=== PATIENT | male | born 1980 | race Caucasian/White ===

== ENCOUNTER 2018-10-31 15:46 | Inpatient (IN) | payer MEDICAID ==
[2018-10-31] MEDS: OXYCODONE/ACETAMINOPHEN (5/325) TAB PO (17:26)
[2018-10-31] MEDS: KETOROLAC 15 MG INJ IV (17:26)
[2018-10-31] MEDS: CEFTRIAXONE 1 GM/50 ML (PMX) 50 ML IVPB (17:26)
[2018-10-31] MEDS: SOD CHLORIDE 0.9% 1,000 ML IV (17:26)
[2018-10-31 17:38] LABS: ADD MAN DIFF? NO; BASOPHIL # 0.1 10^3/ul (0.0-0.1); BASOPHILS % 0.3 % (0.0-2.0); EOSINOPHILS # 0.1 10^3/ul (0.0-0.5); EOSINOPHILS % 0.8 % (0.0-7.0); HEMATOCRIT 37.6 % (42.0-52.0); HEMOGLOBIN 11.7 g/dl (14.0-18.0); LYMPHOCYTES # 1.8 10^3/ul (0.8-2.9); LYMPHOCYTES % 10.2 % (15.0-51.0); MEAN CORPUSCULAR HEMOGLOBIN 27.1 pg (29.0-33.0); MEAN CORPUSCULAR HGB CONC 31.1 g/dl (32.0-37.0); MEAN CORPUSCULAR VOLUME 87.2 fl (82.0-101.0); MEAN PLATELET VOLUME 9.3 fl (7.4-10.4); MONOCYTE # 1.2 10^3/ul (0.3-0.9); MONOCYTES % 6.8 % (0.0-11.0); NEUTROPHIL # 14.1 10^3/ul (1.6-7.5); NEUTROPHILS % 81.5 % (39.0-77.0); PLATELET COUNT 495 10^3/UL (140-415); RED BLOOD COUNT 4.31 10^6/ul (4.70-6.10); RED CELL DISTRIBUTION WIDTH 13.8 % (11.5-14.5)
[2018-10-31 17:38] LABS: WHITE BLOOD COUNT 17.3 10^3/ul (4.8-10.8)
[2018-10-31 18:00] LABS: ADD UMIC YES; UR ASCORBIC ACID 40 mg/dL (NEGATIVE); UR BACTERIA MANY /HPF (NONE SEEN); UR BILIRUBIN (Dip) NEGATIVE (NEGATIVE); UR BLOOD (Dip) 2+ mg/dL (NEGATIVE); UR CLARITY CLOUDY (CLEAR); UR COLOR AMBER (YELLOW); UR GLUCOSE (Dip) NEGATIVE (NEGATIVE); UR KETONES (Dip) TRACE mg/dL (NEGATIVE); UR LEUKOCYTE ESTERASE (Dip) NEGATIVE Leu/ul (NEGATIVE); UR NITRITE (Dip) NEGATIVE (NEGATIVE); UR RBC 63 /HPF (0-5); UR SPECIFIC GRAVITY (Dip) 1.015 (1.003-1.030); UR SQUAMOUS EPITHELIAL CELL FEW /HPF (FEW); UR TOTAL PROTEIN (Dip) 2+ mg/dl (NEGATIVE); UR UROBILINOGEN (Dip) 1+ mg/dL (NEGATIVE); UR WBC > 182 /HPF (0-5)
[2018-10-31 18:18] LABS: ALBUMIN 4.2 g/dl (3.3-4.9); ALBUMIN/GLOBULIN RATIO 0.91; ALKALINE PHOSPHATASE 134 IU/L (42-121); ANION GAP 12 (5-13); ASPARTATE AMINO TRANSFERASE 15 IU/L (15-46); BILIRUBIN,INDIRECT 0.3 mg/dl (0-1.1); BILIRUBIN,TOTAL 0.3 mg/dl (0.2-1.3); BLOOD UREA NITROGEN 12 mg/dl (7-20); CALCIUM 9.9 mg/dl (8.4-10.2); CARBON DIOXIDE 27 mmol/L (21-31); CHLORIDE 100 mmol/L (97-110); CREATININE 0.57 mg/dl (0.61-1.24); Estimated GFR > 60 mL/min (>60); GLUCOSE 101 mg/dl (70-220); LIPASE 12 U/L (23-300); POTASSIUM 3.8 mmol/L (3.5-5.1); SODIUM 139 mmol/L (135-144); TOTAL PROTEIN 8.8 g/dl (6.1-8.1)
[2018-10-31 18:20] LABS: ALANINE AMINOTRANSFERASE < 6 IU/L (13-69)
[2018-10-31] MEDS ORDERED: NACL 0.9% 3 ML SYG IV (18:30)
[2018-10-31] MEDS ORDERED: ONDANSETRON 4 MG INJ IV (18:30)
[2018-10-31] MEDS ORDERED: OXYCODONE/ACETAMINOPHEN (5/325) TAB PO ×2 (18:30)
[2018-10-31] MEDS ORDERED: ACETAMINOPHEN 325 MG TAB PO (18:30)
[2018-10-31] MEDS: VANCOMYCIN IV PER PHARMACY XX (18:35)
[2018-10-31] MEDS: PIPER-TAZO 3.375 GM IV (PMX) 100 ML IVPB (18:39)
[2018-10-31] MEDS ORDERED: traMADol 50 MG TAB PO (19:00)
[2018-10-31] MEDS: SOD CHLORIDE 0.9% 500 ML IV (19:24)
[2018-10-31] MEDS: morphine 2 MG INJ IV (19:26)
[2018-10-31] MEDS: VANCOMYCIN HCL 1.25 GM in SOD CHLORIDE 0.9% 250 ML IVPB (21:14)
[2018-10-31] MEDS: oxyCODONE 15 MG TAB PO (21:15)
[2018-10-31] MEDS ORDERED: COLLAGENASE 5 GM (UD JAR) TOP (23:18)
[2018-10-31] MEDS ORDERED: PENDING SANTYL ORDER FOR WOUND CARE XX (23:30)
[2018-11-01] MEDS: SOD CHLORIDE 0.9% 1,000 ML IV ×4 (00:12→21:04)
[2018-11-01] MEDS: HEPARIN 5,000 UNIT/1 ML VIAL SC ×3 (00:15→21:00)
[2018-11-01] MEDS: morphine 2 MG INJ IV ×4 (00:20→19:03)
[2018-11-01] MEDS: oxyCODONE 15 MG TAB PO ×4 (03:21→22:55)
[2018-11-01] MEDS: PIPER-TAZO 3.375 GM IV (PMX) 100 ML IVPB ×3 (05:32→21:04)
[2018-11-01 06:04] LABS: ADD MAN DIFF? NO
[2018-11-01 06:08] LABS: BASOPHILS % 0.4 % (0.0-2.0); EOSINOPHILS # 0.3 10^3/ul (0.0-0.5); EOSINOPHILS % 3.4 % (0.0-7.0); HEMOGLOBIN 9.1 g/dl (14.0-18.0); LYMPHOCYTES # 2.3 10^3/ul (0.8-2.9); LYMPHOCYTES % 24.8 % (15.0-51.0); MEAN CORPUSCULAR HEMOGLOBIN 27.3 pg (29.0-33.0); MEAN CORPUSCULAR HGB CONC 31.4 g/dl (32.0-37.0); MEAN CORPUSCULAR VOLUME 87.1 fl (82.0-101.0); MEAN PLATELET VOLUME 9.8 fl (7.4-10.4); MONOCYTES % 10.8 % (0.0-11.0); NEUTROPHIL # 5.6 10^3/ul (1.6-7.5); NEUTROPHILS % 60.3 % (39.0-77.0); PLATELET COUNT 411 10^3/UL (140-415); RED BLOOD COUNT 3.33 10^6/ul (4.70-6.10); RED CELL DISTRIBUTION WIDTH 13.6 % (11.5-14.5)
[2018-11-01 06:08] LABS: WHITE BLOOD COUNT 9.3 10^3/ul (4.8-10.8)
[2018-11-01 06:35] LABS: ALBUMIN 3.3 g/dl (3.3-4.9); ALBUMIN/GLOBULIN RATIO 0.91; ALKALINE PHOSPHATASE 87 IU/L (42-121); ANION GAP 8 (5-13); ASPARTATE AMINO TRANSFERASE 14 IU/L (15-46); BILIRUBIN,INDIRECT 0.2 mg/dl (0-1.1); BILIRUBIN,TOTAL 0.2 mg/dl (0.2-1.3); BLOOD UREA NITROGEN 12 mg/dl (7-20); CALCIUM 8.6 mg/dl (8.4-10.2); CARBON DIOXIDE 27 mmol/L (21-31); CHLORIDE 104 mmol/L (97-110); CREATININE 0.47 mg/dl (0.61-1.24); Estimated GFR > 60 mL/min (>60); GLUCOSE 113 mg/dl (70-220); MAGNESIUM 1.9 mg/dl (1.7-2.5); POTASSIUM 3.4 mmol/L (3.5-5.1); SODIUM 139 mmol/L (135-144); TOTAL PROTEIN 6.9 g/dl (6.1-8.1)
[2018-11-01 06:36] LABS: ALANINE AMINOTRANSFERASE < 6 IU/L (13-69)
[2018-11-01] MEDS: VANCOMYCIN 1 GM in 250 ML IVPB ×3 (06:56→21:55)
[2018-11-01] MEDS: POTASSIUM CHLORIDE 20 MEQ POWDER FOR ORAL SOLN PO ×2 (13:00→13:13)
[2018-11-01] MEDS: POTASSIUM CHLORIDE (SR) 20 MEQ TAB PO (14:46)
[2018-11-01] MEDS ORDERED: COLLAGENASE 5 GM (UD JAR) TOP (20:12)
[2018-11-01 20:47] LABS: VANCOMYCIN,TROUGH 13.9 ug/ml (10.0-20.0)
[2018-11-02] MEDS: morphine 2 MG INJ IV ×4 (01:57→19:47)
[2018-11-02] MEDS: PIPER-TAZO 3.375 GM IV (PMX) 100 ML IVPB ×3 (05:57→22:18)
[2018-11-02] MEDS: oxyCODONE 15 MG TAB PO ×3 (05:58→23:36)
[2018-11-02] MEDS: VANCOMYCIN 1 GM in 250 ML IVPB ×3 (07:01→20:15)
[2018-11-02] MEDS: HEPARIN 5,000 UNIT/1 ML VIAL SC (09:13)
[2018-11-02 10:33] LABS: ADD MAN DIFF? NO
[2018-11-02 10:36] LABS: BASOPHILS % 0.3 % (0.0-2.0); EOSINOPHILS # 0.2 10^3/ul (0.0-0.5); EOSINOPHILS % 2.9 % (0.0-7.0); HEMATOCRIT 28.3 % (42.0-52.0); HEMOGLOBIN 8.5 g/dl (14.0-18.0); LYMPHOCYTES # 1.1 10^3/ul (0.8-2.9); LYMPHOCYTES % 16.3 % (15.0-51.0); MEAN CORPUSCULAR HEMOGLOBIN 26.5 pg (29.0-33.0); MEAN CORPUSCULAR VOLUME 88.2 fl (82.0-101.0); MEAN PLATELET VOLUME 9.5 fl (7.4-10.4); MONOCYTE # 0.5 10^3/ul (0.3-0.9); MONOCYTES % 6.8 % (0.0-11.0); NEUTROPHIL # 5.2 10^3/ul (1.6-7.5); NEUTROPHILS % 73.4 % (39.0-77.0); PLATELET COUNT 368 10^3/UL (140-415); RED BLOOD COUNT 3.21 10^6/ul (4.70-6.10); RED CELL DISTRIBUTION WIDTH 13.9 % (11.5-14.5)
[2018-11-02 11:00] LABS: ANION GAP 4 (5-13); BLOOD UREA NITROGEN 6 mg/dl (7-20); CALCIUM 8.6 mg/dl (8.4-10.2); CARBON DIOXIDE 26 mmol/L (21-31); CHLORIDE 111 mmol/L (97-110); CREATININE 0.53 mg/dl (0.61-1.24); Estimated GFR > 60 mL/min (>60); GLUCOSE 139 mg/dl (70-220); MAGNESIUM 1.9 mg/dl (1.7-2.5); PHOSPHORUS 2.9 mg/dl (2.5-4.9); POTASSIUM 3.9 mmol/L (3.5-5.1); SODIUM 141 mmol/L (135-144)
[2018-11-03] MEDS: morphine 2 MG INJ IV ×4 (02:34→23:04)
[2018-11-03] MEDS: PIPER-TAZO 3.375 GM IV (PMX) 100 ML IVPB ×3 (05:17→23:05)
[2018-11-03] MEDS: VANCOMYCIN 1 GM in 250 ML IVPB ×3 (05:49→20:57)
[2018-11-03] MEDS: oxyCODONE 15 MG TAB PO ×3 (05:51→21:09)
[2018-11-03 08:15] LABS: ADD MAN DIFF? NO
[2018-11-03 08:18] LABS: BASOPHILS % 0.6 % (0.0-2.0); EOSINOPHILS # 0.2 10^3/ul (0.0-0.5); EOSINOPHILS % 4.5 % (0.0-7.0); HEMATOCRIT 28.5 % (42.0-52.0); HEMOGLOBIN 8.7 g/dl (14.0-18.0); LYMPHOCYTES # 1.6 10^3/ul (0.8-2.9); LYMPHOCYTES % 30.7 % (15.0-51.0); MEAN CORPUSCULAR HEMOGLOBIN 27.3 pg (29.0-33.0); MEAN CORPUSCULAR HGB CONC 30.5 g/dl (32.0-37.0); MEAN CORPUSCULAR VOLUME 89.3 fl (82.0-101.0); MEAN PLATELET VOLUME 9.5 fl (7.4-10.4); MONOCYTE # 0.4 10^3/ul (0.3-0.9); MONOCYTES % 7.8 % (0.0-11.0); NEUTROPHIL # 2.9 10^3/ul (1.6-7.5); NEUTROPHILS % 56.2 % (39.0-77.0); PLATELET COUNT 349 10^3/UL (140-415); RED BLOOD COUNT 3.19 10^6/ul (4.70-6.10); RED CELL DISTRIBUTION WIDTH 14.1 % (11.5-14.5)
[2018-11-03 08:18] LABS: WHITE BLOOD COUNT 5.1 10^3/ul (4.8-10.8)
[2018-11-03] MEDS: ZINC SULFATE 220 MG CAP PO (08:30)
[2018-11-03] MEDS: ASCORBIC ACID 500 MG TAB PO ×2 (08:30→20:57)
[2018-11-03] MEDS: MULTIVITAMINS/MINERALS TAB PO (08:30)
[2018-11-03 08:40] LABS: ANION GAP 4 (5-13); BLOOD UREA NITROGEN 6 mg/dl (7-20); CALCIUM 8.2 mg/dl (8.4-10.2); CARBON DIOXIDE 28 mmol/L (21-31); CHLORIDE 111 mmol/L (97-110); CREATININE 0.51 mg/dl (0.61-1.24); Estimated GFR > 60 mL/min (>60); GLUCOSE 88 mg/dl (70-220); PHOSPHORUS 3.5 mg/dl (2.5-4.9); POTASSIUM 4.1 mmol/L (3.5-5.1); SODIUM 143 mmol/L (135-144)
[2018-11-03] MEDS ORDERED: BALSAM PERU/CASTOR OIL 60 GM TUBE TOP ×2 (09:00→21:00)
[2018-11-03] MEDS ORDERED: COLLAGENASE 5 GM (UD JAR) TOP ×2 (09:00→15:30)
[2018-11-03] MEDS: DOCUSATE SODIUM 100 MG CAP PO ×2 (12:08→21:00)
[2018-11-03] MEDS: COLLAGENASE 5 GM (UD JAR) TOP (18:09)
[2018-11-03] MEDS: BALSAM PERU/CASTOR OIL 60 GM TUBE TOP (18:09)
[2018-11-04] MEDS: oxyCODONE 15 MG TAB PO ×3 (03:49→18:45)
[2018-11-04] MEDS: PIPER-TAZO 3.375 GM IV (PMX) 100 ML IVPB ×3 (05:18→22:24)
[2018-11-04] MEDS: VANCOMYCIN 1 GM in 250 ML IVPB ×2 (06:05→14:41)
[2018-11-04] MEDS: MULTIVITAMINS/MINERALS TAB PO (12:31)
[2018-11-04] MEDS: ZINC SULFATE 220 MG CAP PO (12:31)
[2018-11-04] MEDS: ASCORBIC ACID 500 MG TAB PO ×2 (12:32→21:27)
[2018-11-04] MEDS: DOCUSATE SODIUM 100 MG CAP PO ×2 (12:32→21:00)
[2018-11-04 12:47] LABS: ADD MAN DIFF? NO
[2018-11-04 12:48] LABS: BASOPHILS % 0.5 % (0.0-2.0); EOSINOPHILS # 0.3 10^3/ul (0.0-0.5); EOSINOPHILS % 4.6 % (0.0-7.0); HEMATOCRIT 29.6 % (42.0-52.0); HEMOGLOBIN 9.1 g/dl (14.0-18.0); LYMPHOCYTES # 1.2 10^3/ul (0.8-2.9); LYMPHOCYTES % 19.1 % (15.0-51.0); MEAN CORPUSCULAR HEMOGLOBIN 27.4 pg (29.0-33.0); MEAN CORPUSCULAR HGB CONC 30.7 g/dl (32.0-37.0); MEAN CORPUSCULAR VOLUME 89.2 fl (82.0-101.0); MEAN PLATELET VOLUME 9.7 fl (7.4-10.4); MONOCYTE # 0.5 10^3/ul (0.3-0.9); MONOCYTES % 7.4 % (0.0-11.0); NEUTROPHIL # 4.2 10^3/ul (1.6-7.5); NEUTROPHILS % 68.1 % (39.0-77.0); PLATELET COUNT 353 10^3/UL (140-415); RED BLOOD COUNT 3.32 10^6/ul (4.70-6.10)
[2018-11-04 12:48] LABS: WHITE BLOOD COUNT 6.1 10^3/ul (4.8-10.8)
[2018-11-04 13:16] LABS: ANION GAP 7 (5-13); BLOOD UREA NITROGEN 8 mg/dl (7-20); CALCIUM 8.9 mg/dl (8.4-10.2); CARBON DIOXIDE 25 mmol/L (21-31); CHLORIDE 110 mmol/L (97-110); CREATININE 0.53 mg/dl (0.61-1.24); Estimated GFR > 60 mL/min (>60); GLUCOSE 145 mg/dl (70-220); PHOSPHORUS 3.2 mg/dl (2.5-4.9); POTASSIUM 4.2 mmol/L (3.5-5.1); SODIUM 142 mmol/L (135-144)
[2018-11-04 13:21] LABS: VANCOMYCIN,TROUGH 19.4 ug/ml (10.0-20.0)
[2018-11-04] MEDS: morphine 2 MG INJ IV ×3 (14:02→23:51)
[2018-11-04] MEDS: COLLAGENASE 5 GM (UD JAR) TOP (15:31)
[2018-11-04] MEDS: BALSAM PERU/CASTOR OIL 60 GM TUBE TOP ×2 (15:31→21:30)
[2018-11-05] MEDS: oxyCODONE 15 MG TAB PO ×4 (01:13→20:40)
[2018-11-05] MEDS: VANCOMYCIN 1 GM 250 ML IVPB (02:04)
[2018-11-05] MEDS: morphine 2 MG INJ IV ×4 (04:30→22:19)
[2018-11-05] MEDS: PIPER-TAZO 3.375 GM IV (PMX) 100 ML IVPB (06:06)
[2018-11-05] MEDS: ZINC SULFATE 220 MG CAP PO (08:40)
[2018-11-05] MEDS: ASCORBIC ACID 500 MG TAB PO ×2 (08:40→20:39)
[2018-11-05] MEDS: MULTIVITAMINS/MINERALS TAB PO (08:40)
[2018-11-05] MEDS: DOCUSATE SODIUM 100 MG CAP PO ×2 (08:40→21:00)
[2018-11-05] MEDS: BALSAM PERU/CASTOR OIL 60 GM TUBE TOP ×2 (08:41→20:39)
[2018-11-05] MEDS: COLLAGENASE 5 GM (UD JAR) TOP (08:41)
[2018-11-05 09:09] LABS: ADD MAN DIFF? NO
[2018-11-05 09:15] LABS: WHITE BLOOD COUNT 8.3 10^3/ul (4.8-10.8)
[2018-11-05 09:15] LABS: BASOPHILS % 0.5 % (0.0-2.0); EOSINOPHILS # 0.4 10^3/ul (0.0-0.5); EOSINOPHILS % 4.6 % (0.0-7.0); HEMATOCRIT 28.3 % (42.0-52.0); HEMOGLOBIN 8.8 g/dl (14.0-18.0); LYMPHOCYTES # 2.8 10^3/ul (0.8-2.9); MEAN CORPUSCULAR HEMOGLOBIN 27.9 pg (29.0-33.0); MEAN CORPUSCULAR HGB CONC 31.1 g/dl (32.0-37.0); MEAN CORPUSCULAR VOLUME 89.8 fl (82.0-101.0); MEAN PLATELET VOLUME 9.5 fl (7.4-10.4); MONOCYTE # 0.6 10^3/ul (0.3-0.9); MONOCYTES % 7.1 % (0.0-11.0); NEUTROPHIL # 4.5 10^3/ul (1.6-7.5); NEUTROPHILS % 53.6 % (39.0-77.0); PLATELET COUNT 369 10^3/UL (140-415); RED BLOOD COUNT 3.15 10^6/ul (4.70-6.10); RED CELL DISTRIBUTION WIDTH 13.9 % (11.5-14.5)
[2018-11-05 09:35] LABS: ANION GAP 6 (5-13); BLOOD UREA NITROGEN 6 mg/dl (7-20); CALCIUM 8.6 mg/dl (8.4-10.2); CARBON DIOXIDE 33 mmol/L (21-31); CHLORIDE 104 mmol/L (97-110); CREATININE 0.58 mg/dl (0.61-1.24); Estimated GFR > 60 mL/min (>60); GLUCOSE 84 mg/dl (70-220); MAGNESIUM 2.1 mg/dl (1.7-2.5); PHOSPHORUS 3.8 mg/dl (2.5-4.9); POTASSIUM 3.9 mmol/L (3.5-5.1); SODIUM 143 mmol/L (135-144)
[2018-11-05] MEDS: LEVOFLOXACIN 500 MG TAB PO (10:09)
[2018-11-06] MEDS: morphine 2 MG INJ IV ×4 (02:21→21:19)
[2018-11-06] MEDS: LEVOFLOXACIN 500 MG TAB PO (06:01)
[2018-11-06] MEDS: oxyCODONE 15 MG TAB PO ×3 (07:02→23:02)
[2018-11-06] MEDS: DOCUSATE SODIUM 100 MG CAP PO ×4 (13:56→21:00)
[2018-11-06] MEDS: ASCORBIC ACID 500 MG TAB PO ×3 (13:57→21:19)
[2018-11-06] MEDS: ZINC SULFATE 220 MG CAP PO ×2 (13:57→14:54)
[2018-11-06] MEDS: MULTIVITAMINS/MINERALS TAB PO ×2 (13:57→14:54)
[2018-11-06] MEDS: COLLAGENASE 5 GM (UD JAR) TOP ×2 (14:49→14:55)
[2018-11-06] MEDS: BALSAM PERU/CASTOR OIL 60 GM TUBE TOP ×3 (14:49→21:25)
[2018-11-06 15:25] LABS: ADD MAN DIFF? NO
[2018-11-06 15:28] LABS: WHITE BLOOD COUNT 6.8 10^3/ul (4.8-10.8)
[2018-11-06 15:28] LABS: BASOPHILS % 0.6 % (0.0-2.0); EOSINOPHILS # 0.3 10^3/ul (0.0-0.5); EOSINOPHILS % 4.9 % (0.0-7.0); HEMATOCRIT 33.1 % (42.0-52.0); HEMOGLOBIN 10.2 g/dl (14.0-18.0); LYMPHOCYTES # 1.9 10^3/ul (0.8-2.9); LYMPHOCYTES % 27.8 % (15.0-51.0); MEAN CORPUSCULAR HEMOGLOBIN 27.3 pg (29.0-33.0); MEAN CORPUSCULAR HGB CONC 30.8 g/dl (32.0-37.0); MEAN CORPUSCULAR VOLUME 88.5 fl (82.0-101.0); MEAN PLATELET VOLUME 9.5 fl (7.4-10.4); MONOCYTE # 0.4 10^3/ul (0.3-0.9); MONOCYTES % 5.6 % (0.0-11.0); NEUTROPHIL # 4.1 10^3/ul (1.6-7.5); PLATELET COUNT 423 10^3/UL (140-415); RED BLOOD COUNT 3.74 10^6/ul (4.70-6.10); RED CELL DISTRIBUTION WIDTH 14.4 % (11.5-14.5)
[2018-11-06 15:56] LABS: ANION GAP 6 (5-13); BLOOD UREA NITROGEN 8 mg/dl (7-20); CALCIUM 9.4 mg/dl (8.4-10.2); CARBON DIOXIDE 30 mmol/L (21-31); CHLORIDE 107 mmol/L (97-110); CREATININE 0.56 mg/dl (0.61-1.24); Estimated GFR > 60 mL/min (>60); GLUCOSE 80 mg/dl (70-220); MAGNESIUM 2.2 mg/dl (1.7-2.5); PHOSPHORUS 3.8 mg/dl (2.5-4.9); POTASSIUM 4.3 mmol/L (3.5-5.1); SODIUM 143 mmol/L (135-144)
[2018-11-07] MEDS: morphine 2 MG INJ IV ×5 (01:13→21:15)
[2018-11-07] MEDS: LEVOFLOXACIN 500 MG TAB PO (05:31)
[2018-11-07 06:27] LABS: ADD MAN DIFF? NO
[2018-11-07] MEDS: oxyCODONE 15 MG TAB PO ×3 (06:36→22:35)
[2018-11-07 06:41] LABS: BASOPHIL # 0.1 10^3/ul (0.0-0.1); BASOPHILS % 0.5 % (0.0-2.0); EOSINOPHILS # 0.4 10^3/ul (0.0-0.5); EOSINOPHILS % 4.2 % (0.0-7.0); HEMATOCRIT 30.7 % (42.0-52.0); HEMOGLOBIN 9.5 g/dl (14.0-18.0); LYMPHOCYTES # 3.6 10^3/ul (0.8-2.9); LYMPHOCYTES % 38.1 % (15.0-51.0); MEAN CORPUSCULAR HGB CONC 30.9 g/dl (32.0-37.0); MEAN CORPUSCULAR VOLUME 87.2 fl (82.0-101.0); MEAN PLATELET VOLUME 9.8 fl (7.4-10.4); MONOCYTE # 0.7 10^3/ul (0.3-0.9); MONOCYTES % 7.3 % (0.0-11.0); NEUTROPHIL # 4.7 10^3/ul (1.6-7.5); NEUTROPHILS % 49.5 % (39.0-77.0); PLATELET COUNT 426 10^3/UL (140-415); RED BLOOD COUNT 3.52 10^6/ul (4.70-6.10); RED CELL DISTRIBUTION WIDTH 14.3 % (11.5-14.5)
[2018-11-07 06:41] LABS: WHITE BLOOD COUNT 9.5 10^3/ul (4.8-10.8)
[2018-11-07 07:12] LABS: ANION GAP 7 (5-13); BLOOD UREA NITROGEN 13 mg/dl (7-20); CALCIUM 8.9 mg/dl (8.4-10.2); CARBON DIOXIDE 29 mmol/L (21-31); CHLORIDE 105 mmol/L (97-110); CREATININE 0.66 mg/dl (0.61-1.24); Estimated GFR > 60 mL/min (>60); GLUCOSE 97 mg/dl (70-220); MAGNESIUM 2.1 mg/dl (1.7-2.5); PHOSPHORUS 4.4 mg/dl (2.5-4.9); POTASSIUM 4.2 mmol/L (3.5-5.1); SODIUM 141 mmol/L (135-144)
[2018-11-07] MEDS: COLLAGENASE 5 GM (UD JAR) TOP (09:00)
[2018-11-07] MEDS: BALSAM PERU/CASTOR OIL 60 GM TUBE TOP ×2 (09:00→21:15)
[2018-11-07] MEDS: ZINC SULFATE 220 MG CAP PO (09:21)
[2018-11-07] MEDS: DOCUSATE SODIUM 100 MG CAP PO ×2 (09:21→21:15)
[2018-11-07] MEDS: ASCORBIC ACID 500 MG TAB PO ×2 (09:21→21:15)
[2018-11-07] MEDS: MULTIVITAMINS/MINERALS TAB PO (09:21)
[2018-11-08] MEDS: morphine 2 MG INJ IV ×6 (01:14→23:51)
[2018-11-08] MEDS: LEVOFLOXACIN 500 MG TAB PO (06:08)
[2018-11-08] MEDS: oxyCODONE 15 MG TAB PO ×3 (08:09→20:50)
[2018-11-08] MEDS: COLLAGENASE 5 GM (UD JAR) TOP (08:11)
[2018-11-08] MEDS: ASCORBIC ACID 500 MG TAB PO ×2 (08:11→20:50)
[2018-11-08] MEDS: ZINC SULFATE 220 MG CAP PO (08:11)
[2018-11-08] MEDS: MULTIVITAMINS/MINERALS TAB PO (08:11)
[2018-11-08] MEDS: DOCUSATE SODIUM 100 MG CAP PO ×2 (08:11→21:00)
[2018-11-08] MEDS: BALSAM PERU/CASTOR OIL 60 GM TUBE TOP ×2 (08:13→21:01)
[2018-11-08 14:33] LABS: ADD MAN DIFF? NO
[2018-11-08 14:38] LABS: BASOPHIL # 0.1 10^3/ul (0.0-0.1); BASOPHILS % 0.8 % (0.0-2.0); EOSINOPHILS # 0.3 10^3/ul (0.0-0.5); EOSINOPHILS % 5.2 % (0.0-7.0); HEMATOCRIT 36.1 % (42.0-52.0); HEMOGLOBIN 10.8 g/dl (14.0-18.0); LYMPHOCYTES # 2.4 10^3/ul (0.8-2.9); LYMPHOCYTES % 36.8 % (15.0-51.0); MEAN CORPUSCULAR HEMOGLOBIN 26.8 pg (29.0-33.0); MEAN CORPUSCULAR HGB CONC 29.9 g/dl (32.0-37.0); MEAN CORPUSCULAR VOLUME 89.6 fl (82.0-101.0); MEAN PLATELET VOLUME 9.5 fl (7.4-10.4); MONOCYTE # 0.5 10^3/ul (0.3-0.9); MONOCYTES % 7.3 % (0.0-11.0); NEUTROPHIL # 3.2 10^3/ul (1.6-7.5); NEUTROPHILS % 49.4 % (39.0-77.0); PLATELET COUNT 466 10^3/UL (140-415); RED BLOOD COUNT 4.03 10^6/ul (4.70-6.10); RED CELL DISTRIBUTION WIDTH 14.5 % (11.5-14.5)
[2018-11-08 14:38] LABS: WHITE BLOOD COUNT 6.6 10^3/ul (4.8-10.8)
[2018-11-08 15:00] LABS: ANION GAP 8 (5-13); BLOOD UREA NITROGEN 15 mg/dl (7-20); CALCIUM 9.5 mg/dl (8.4-10.2); CARBON DIOXIDE 31 mmol/L (21-31); CHLORIDE 103 mmol/L (97-110); CREATININE 0.66 mg/dl (0.61-1.24); Estimated GFR > 60 mL/min (>60); GLUCOSE 88 mg/dl (70-220); MAGNESIUM 2.1 mg/dl (1.7-2.5); PHOSPHORUS 4.2 mg/dl (2.5-4.9); POTASSIUM 4.4 mmol/L (3.5-5.1); SODIUM 142 mmol/L (135-144)
[2018-11-09] MEDS: oxyCODONE 15 MG TAB PO ×2 (03:07→09:14)
[2018-11-09] MEDS: LEVOFLOXACIN 500 MG TAB PO (05:22)
[2018-11-09] MEDS: morphine 2 MG INJ IV ×2 (05:23→10:46)
[2018-11-09] MEDS: DOCUSATE SODIUM 100 MG CAP PO (09:00)
[2018-11-09] MEDS: ASCORBIC ACID 500 MG TAB PO (09:13)
[2018-11-09] MEDS: MULTIVITAMINS/MINERALS TAB PO (09:13)
[2018-11-09] MEDS: COLLAGENASE 5 GM (UD JAR) TOP (09:13)
[2018-11-09] MEDS: ZINC SULFATE 220 MG CAP PO (09:13)
[2018-11-09] MEDS: BALSAM PERU/CASTOR OIL 60 GM TUBE TOP (09:14)
== END 2018-11-09 12:50 | disposition home or self-care (01) | DRG 689 ==
LOC: FTE 15:46 → PP2 18:10
DX: N39.0 Urinary tract infection, site not specified (principal); L89.224 Pressure ulcer of left hip, stage 4; L89.214 Pressure ulcer of right hip, stage 4; G82.20 Paraplegia, unspecified; Z68.1 Body mass index [BMI] 19.9 or less, adult; R78.81 Bacteremia; E86.0 Dehydration; Z59.0 Homelessness; G62.9 Polyneuropathy, unspecified; D72.829 Elevated white blood cell count, unspecified; Z72.0 Tobacco use; L89.150 Pressure ulcer of sacral region, unstageable; L89.210 Pressure ulcer of right hip, unstageable; L89.610 Pressure ulcer of right heel, unstageable; L89.320 Pressure ulcer of left buttock, unstageable; B96.20 Unspecified Escherichia coli [E. coli] as the cause of diseases classified elsewhere; B96.4 Proteus (mirabilis) (morganii) as the cause of diseases classified elsewhere; B95.4 Other streptococcus as the cause of diseases classified elsewhere; B96.89 Other specified bacterial agents as the cause of diseases classified elsewhere; R31.9 Hematuria, unspecified; N32.89 Other specified disorders of bladder
CPT/HCPCS: 36415; 71045; 74018; 76775; 80048; 80053; 80202; 81001; 83690; 83735; 84100; 85025; 87040-91; 87070; 87081; 87086; 88104; 88305; 96365; 96375; 97161; 97166; 99285-25